=== PATIENT | male | born 1955 | race Caucasian/White ===

== ENCOUNTER 2016-08-20 17:59 | Emergency (ER) | payer OTHER ==
[~2016-08-20] VITALS: Ht 188 cm; Wt 100.7 kg
[2016-08-20 18:06] VITALS: BP 148/78
--- NOTE | 2016-08-20 18:17 | ED HAND/WRIST INJURY COMPLAINT ---
History of Present Illness General Chief Complaint: Laceration Procedure Stated Complaint: LAC TO LT THUMB Source: patient, family Exam Limitations: no limitations Vital Signs & Intake/Output Vital Signs & Intake/Output Vital Signs Date Time Temp Pulse Resp B/P Pulse O2 O2 Flow FiO2 Ox Delivery Rate 08/20 1806 98.5 77 16 148/78 95 Room Air Allergies Coded Allergies: NO KNOWN ALLERGIES (11/25/10) Reconcile Medications Cephalexin (Keflex) 500 MG CAPSULE 1 CAP PO TID wound prophylaxis Ibuprofen 800 MG TABLET 1 TAB PO Q8 PRN PAIN Oxycodone HCl/Acetaminophen (Percocet 5-325 MG Tablet) 5 MG-325 MG TABLET 1-2 TAB PO Q6H PRN PAIN Triage Note: PT STATES HE WAS USING A ROUTER AND IT TOOK THE TOP OF HIS LEFT THUMB OFF ABOUT 20 MINUTES AGO. Triage Nurses Notes Reviewed? yes HPI: Patient is a 61 year old male presents for evaluation of left thumb laceration. Patient was using a power tool when he accidentally lacerated the fingernail of his left thumb. Injury occurred approximately 30 minutes ago. Pain is sharp, severe, worse with palpation. Patient reports his last tetanus immunization was within the past 10 years. Patient is right hand dominant. Denies decreased range of motion of thumb. (SALMA COTO) Past History Travel History Traveled to [place] past 21 day No Medical History Any Pertinent Medical History? see below for history Cardiovascular: myocardial infarction Tetanus Vaccine: Surgical History Surgical History: left index finger surgery Psychosocial History What is your primary language Cape Verdean Tobacco Use: Current Daily Use Daily Tobacco Use Amount/Type: => 5 Cigarettes daily ETOH Use: occasional use Illicit Drug Use: denies illicit drug use Family History Hx Contributory? No (SALMA COTO) Review of Systems Review of Systems Constitutional: Reports: no symptoms. Cardiovascular: Denies: chest pain. GI: Denies: abdominal pain. Musculoskeletal: Reports: see HPI. Skin: Reports: see HPI. Neurological/Psychological: Denies: numbness, paresthesia. Hematologic/Endocrine: Reports: bleeding (from wound). (SALMA COTO) Physical Exam Physical Exam General Appearance: well developed/nourished, alert, awake, anxious Head: atraumatic Eyes: Bilateral: normal appearance. Ears, Nose, Throat: hearing grossly normal Neck: normal inspection, full range of motion Cardiovascular/Respiratory: no respiratory distress Back: normal range of motion Hand Left: laceration nail bed of left thumb. nail bed macerated. wound margins do not approximate with pressure placed to the area. Partial fingernail avulsion. Full range of motion. Hand Right: normal inspection, normal range of motion Neurologic/Tendon: normal sensation, normal motor functions, normal tendon functions (SALMA COTO) Progress Differential Diagnosis: foreign body, fracture, nailbed laceration, tendon laceration Diagnostic Imaging: Viewed by Me: Radiology Read. Discussed w/RAD: Radiology Read. Radiology Impression: PATIENT: ERLINDA URBANO PRESENT AGE: 61 PATIENT ACCOUNT NO: [id number] : 53 LOCATION: [facility] ORDERING PHYSICIAN: SALMA RENTERIA SERVICE DATE: 08/20/16 EXAM TYPE: RAD - XRY-FINGERS, LEFT EXAMINATION: XR FINGER, LEFT CLINICAL INFORMATION: Laceration. COMPARISON: None TECHNIQUE: Three views of the left left thumb. FINDINGS: There are metallic foreign body along the soft tissues of the distal aspect of the first digit and proximal aspect of the second digit. Smaller radiopaque foreign body overlies the region of the thenar soft tissues. There is no underlying fracture or dislocation. IMPRESSION: Numerous or opaque foreign bodies as above. No definite acute fracture. DICTATED BY: ZAKIA SONG MD DATE/ TIME DICTATED:08/20/161934 WAREHOUSE TEAM MEMBER:BRIAN DATE/TIME TRANSCRIBED: 08/20/161934 CONFIDENTIAL, DO NOT COPY WITHOUT APPROPRIATE AUTHORIZATION. < Electronically signed in Other Vendor System> SIGNED BY: ZAKIA SONG MD 10/31 (SALMA COTO) Plan of Care: Orders Procedure Date/time Status XRY-FINGERS, LEFT 08/20 1826 Active Discussed with and seen by Dr. Kiran. Nail bed wounds do not appear suturable. 1919: X-ray images were reviewed with the patient and his . Presence of foreign bodies was discussed. Patient struck to to contact Dr. Marshall or Dr. Mcfarlane on Monday for further evaluation. (SALMA COTO) Departure Departure Time of Disposition: 1921 Disposition: HOME OR SELF CARE Condition: Stable Clinical Impression Primary Impression: Nailbed laceration, finger Qualifiers: Encounter type: initial encounter Qualified Code: S61.319A - Laceration without foreign body of unspecified finger with damage to nail, initial encounter Referrals: GABBIE MCFARLANE MD PATIENT HAS NO PRIMARY CARE DR BLADIMIR MAYS,NIGHAT Bhatti Additional Instructions: Change the dressing daily. Wear finger splint for support. Follow up with Dr. Marshall or Dr. Mcfarlane(hand specialists), next week for further evaluation. Call Monday for appointment. Return to the ER if pus from the wound, redness spreading, fevers or worsening of symptoms. Departure Forms: Customer Survey General Discharge Information Prescriptions: Current Visit Scripts Cephalexin (Keflex) 1 CAP PO TID #21 CAP Oxycodone HCl/Acetaminophen (Percocet 5-325 MG Tablet) 1-2 TAB PO Q6H PRN PAIN #10 TAB Ibuprofen 1 TAB PO Q8 PRN PAIN #20 TAB (SALMA COTO) PA/INDIRECT FIRE INFANTRYMAN Co-Sign Statement Statement: ED Attending supervision documentation- [X] I saw and evaluated the patient. I have also reviewed all the pertinent lab results and diagnostic results. I agree with the findings and the plan of care as documented in the PA's/INDIRECT FIRE INFANTRYMAN's documentation. [X] I have reviewed the ED Record and agree with the PA's/INDIRECT FIRE INFANTRYMAN's documentation. [] Additions or exceptions (if any) to the PAs/INDIRECT FIRE INFANTRYMAN's note and plan are summarized below: [] (LEON MAYS,ANGELA) Procedures Laceration/Wound Repair Progress: Base of thumb prepped with chlorhexidine preps. 2% lidocaine 6 mL injected for digital block. Thumb prepped with Betadine. Soaked in a mixture of sterile water and Betadine. Then irrigated with 400 mL of sterile water. Dermabond placed to the nailbed for hemostasis. Clean dressing and finger splint placed by nurse. (SALMA COTO)
[2016-08-20] MEDS ORDERED: PERCOCET 5-3251 EACH PO (19:24)
[2016-08-20] MEDS ORDERED: IBUPROFEN800 M1 PO (19:24)
[2016-08-20] MEDS ORDERED: KEFLEX500 M1 PO (19:24)
--- NOTE | 2016-08-20 19:39 | RADIOLOGY REPORT ---
EXAMINATION: XR FINGER, LEFT CLINICAL INFORMATION: Laceration. COMPARISON: None TECHNIQUE: Three views of the left left thumb. FINDINGS: There are metallic foreign body along the soft tissues of the distal aspect of the first digit and proximal aspect of the second digit. Smaller radiopaque foreign body overlies the region of the thenar soft tissues. There is no underlying fracture or dislocation. IMPRESSION: Numerous or opaque foreign bodies as above. No definite acute fracture.
== END 2016-08-20 20:00 ==
LOC: ERH 17:59
DX: S61.112A Laceration without foreign body of left thumb with damage to nail, initial encounter (principal); W29.8XXA Contact with other powered hand tools and household machinery, initial encounter
CPT/HCPCS: 73140-LT; 96372; J1885; J2001

== ENCOUNTER 2016-09-04 07:28 | Emergency (ER) | payer OTHER ==
[~2016-09-04] VITALS: Ht 185.4 cm; Wt 100.7 kg
[~2016-09-04 07:28] MED LIST: IBUPROFEN800 M1 PO; KEFLEX500 M1 PO; PERCOCET 5-3251 EACH PO
[2016-09-04 07:38] VITALS: BP 134/81
--- NOTE | 2016-09-04 08:20 | ED HAND/WRIST INJURY COMPLAINT ---
History of Present Illness General Chief Complaint: Hand or Wrist Injury Stated Complaint: "I THINK MY FINGER IS INFECTED" LEFT THUMB Source: patient Exam Limitations: no limitations Vital Signs & Intake/Output Vital Signs & Intake/Output Vital Signs Date Time Temp Pulse Resp B/P Pulse O2 O2 Flow FiO2 Ox Delivery Rate 09/04 0738 97.4 78 20 134/81 94 Room Air Room Air Allergies Coded Allergies: NO KNOWN ALLERGIES (11/25/10) Reconcile Medications No Known Home Medications Triage Note: PT TO ED WITH C/O LEFT THUMB INFECTION, CUT NAIL WHILE WOODWORKING 1 WEEK AGO, SEEN HERE, AND "THEY PUT GLUE ON IT, I DIDN'T TAKE ALL OF THE ANTIBIOTIC LIKE I WAS SUPPOSED TO". Triage Nurses Notes Reviewed? yes HPI: 61 yo M PMH HTN, HLD, CAD/NV (s/p stenting) presenting with left thumb pain. Patient cut off distal tip of left radial thumb tip through nailbed 3 days ago, evaluated in this ED, skin glue applied to nail bed, D/Harry with abx, which patient was unable to fill or take. Increased pain, swelling of left thumb since last night, some serous drainage from wound site starting this morning prompting presentation to the ED. Denies fevers, chills, thumb erythema, numbness, weakness. (NAVI MAYS,ARAM) Past History Travel History Traveled to [place] past 21 day No Medical History Any Pertinent Medical History? see below for history Neurological: NONE EENT: NONE Cardiovascular: myocardial infarction, STENTS X 2 Respiratory: NONE Gastrointestinal: NONE Hepatic: NONE Renal: NONE Musculoskeletal: NONE Psychiatric: NONE Endocrine: NONE Blood Disorders: NONE Cancer(s): NONE TIRE SHOP MECHANIC/Reproductive: NONE Tetanus Vaccine: Surgical History Surgical History: left index finger surgery Psychosocial History What is your primary language Irish Tobacco Use: Current Daily Use Daily Tobacco Use Amount/Type: => 5 Cigarettes daily ETOH Use: occasional use Illicit Drug Use: denies illicit drug use Family History Hx Contributory? No (NAVI MAYS,ARAM) Review of Systems Review of Systems Constitutional: Reports: no symptoms. EENTM: Reports: no symptoms. Respiratory: Reports: no symptoms. Cardiovascular: Reports: no symptoms. GI: Reports: no symptoms. Genitourinary: Reports: no symptoms. Musculoskeletal: Reports: no symptoms. Skin: Reports: no symptoms. Neurological/Psychological: Reports: no symptoms. Hematologic/Endocrine: Reports: no symptoms. Immunologic/Allergic: Reports: no symptoms. All Other Systems: Reviewed and Negative (NAVI MAYS,ARAM) Physical Exam Physical Exam General Appearance: well developed/nourished, no apparent distress Head: atraumatic Ears, Nose, Throat: normal ENT inspection Neck: supple, full range of motion Cardiovascular/Respiratory: regular rate/rhythm Gastrointestinal: Soft, Non-TTP Hand Left: Wound to left lateral thumb tip with skin glue in place, mild swelling and TTP, no erythema or active drainage, normal ROM without motor or sensory deficits, full ROM without pain no TTP over proximal flexor tendon sheath Hand Right: normal inspection (NAVI MAYS,ARAM) Progress Differential Diagnosis: cellulitis, compartment syndrome, felon, paronychia, tenosynovitis Plan of Care: 61 yo M presenting with pain, swelling, drainage at left tumb wound site. VSS, afebrile, left thumb exam as above. DDx: Routine healing, less likely cellulitis , wound infection, low concern for flexor tenosynovitis or compartment syndrome. Will re-prescribe abx that patient was supposed to take starting on last ED visit. D/Harry with return precautions for worsening infection, plan to to f/u with hand surgery. D/W. Thi (NAVI MAYS,ARAM) Departure Departure Disposition: HOME OR SELF CARE Condition: Stable Clinical Impression Primary Impression: Laceration of finger nail bed Qualifiers: Encounter type: subsequent encounter Qualified Code: S61.319D - Laceration without foreign body of unspecified finger with damage to nail, subsequent encounter Referrals: SHAREE MAYS,EDUARDO Nichols (PCP/Family) Departure Forms: Customer Survey General Discharge Information Prescriptions: Current Visit Scripts No Known Home Medications (ARAM MCELROY MD) Resident Co-Sign Statement Statement: ED Attending supervision documentation- [x] I saw and evaluated the patient. I have also reviewed all the pertinent lab results and diagnostic results. I agree with the findings and the plan of care as documented in the Resident's documentation. [] I have reviewed the ED Record and agree with the Resident's documentation. [] Additions or exceptions (if any) to the Resident's note and plan are summarized below: [] (THI MAYS,JACOBY Payne
[2016-09-04] MEDS ORDERED: KEFLEX500 M1 PO (08:28)
== END 2016-09-04 08:32 ==
LOC: ERH 07:28
DX: S61.012A Laceration without foreign body of left thumb without damage to nail, initial encounter (principal); W27.8XXA Contact with other nonpowered hand tool, initial encounter